=== PATIENT | male | born 1990 | race Caucasian/White ===

== ENCOUNTER 2023-03-30 12:18 | Emergency (ER) | payer OTHER ==
--- NOTE | 2023-03-30 12:53 | ED ---
Abdominal Pain HPI - General Source: patient, RN notes reviewed Mode of arrival: ambulatory Limitations: no limitations <Reymundo Briggs - Last Filed: 03/30/23 12:47> <René Howe - Last Filed: 03/30/23 21:15> - General Chief Complaint: Abdominal Pain Stated Complaint: swollen/painful right rib area Time Seen by Provider: 03/30/23 12:52 - History of Present Illness Initial Comments: 32-year-old male presents emergency department to complaint right-sided rib pain and abdominal pain. Patient states his bowel movements last few days. Patient states that does hurt to move denies any trauma no rashes. Patient states sometimes eating makes it worse. He has had decreased appetite. Patient denies any other associated symptoms. (Reymundo Briggs) 32-year-old male presenting with chief complaint of rib pain. Pain is been ongoing for the last 3 days. Located on the right side and stretches from the lateral portion to the posterior portion. No injury or trauma. Pain is worse with deep breaths. No dysuria, hematuria, fever, chills, nausea, vomiting, abdominal pain, palpitations, numbness, tingling, weakness. (René Howe) - Related Data Previous Rx's Medication Instructions Recorded Cyclobenzaprine [Flexeril] 10 mg PO HS PRN #15 tab 03/30/23 Lidocaine 5% Patch [Lidoderm 5% 1 patch TOPICAL DAILY PRN #30 patch 03/30/23 Patch] Allergies Allergy/AdvReac Type Severity Reaction Status Date / Time No Known Allergies Allergy Verified 03/30/23 16:55 Review of Systems ROS Other: All systems not noted in ROS Statement are negative. <Reymundo Briggs - Last Filed: 03/30/23 12:47> ROS Other: All systems not noted in ROS Statement are negative. <René Howe - Last Filed: 03/30/23 21:15> ROS Statement: Those systems with pertinent positive or pertinent negative responses have been documented in the HPI. Past Medical History Past Medical History: No Reported History Additional Past Medical History / Comment(s): Overdose, aspiration, hepatitis C History of Any Multi-Drug Resistant Organisms: None Reported Past Surgical History: No Surgical Hx Reported Past Anesthesia/Blood Transfusion Reactions: No Reported Reaction Past Psychological History: Anxiety, Depression Smoking Status: Vaper Past Alcohol Use History: Occasional Past Drug Use History: Cocaine, Marijuana <Reymundo Briggs - Last Filed: 03/30/23 12:47> General Exam Limitations: no limitations <Reymundo Briggs - Last Filed: 03/30/23 12:47> Limitations: no limitations General appearance: alert, in no apparent distress Head exam: Present: atraumatic, normocephalic, normal inspection Eye exam: Present: normal appearance, EOMI Neck exam: Present: normal inspection, full ROM Respiratory exam: Present: normal lung sounds bilaterally, chest wall tenderness. Absent: respiratory distress, wheezes, rales, rhonchi, stridor Cardiovascular Exam: Present: regular rate, normal rhythm, normal heart sounds. Absent: systolic murmur, diastolic murmur, rubs, gallop, clicks Back exam: Present: normal inspection Neurological exam: Present: alert, oriented X3 Psychiatric exam: Present: normal affect, normal mood Skin exam: Present: warm, dry, intact, normal color. Absent: rash <René Howe - Last Filed: 03/30/23 21:15> - General Exam Comments Initial Comments: Visual Physical Exam Vital signs reviewed General: Well-appearing, nontoxic, no acute distress. Head: Normocephalic, atraumatic Eyes: PERRLA, EOMI ENT: Airway patent Chest: Nonlabored breathing Skin: No visual rash, normal skin tone Neuro: Alert and oriented 3 Musculoskeletal: No gross abnormalities (Reymundo Briggs) Course Vital Signs 03/30/23 03/30/23 12:34 19:46 Temperature 98.4 F Pulse Rate 62 62 Respiratory 18 18 Rate Blood Pressure 118/69 120/88 O2 Sat by Pulse 99 99 Oximetry Medical Decision Making <Reymundo Briggs - Last Filed: 03/30/23 12:47> - Lab Data Result diagrams: 03/30/23 13:54 03/30/23 13:54 <René Howe - Last Filed: 03/30/23 21:15> - Medical Decision Making I completed the quick note portion of this chart signed Reymundo Briggs PA-C (Reymundo Briggs) Was pt. sent in by a medical professional or institution ([facility], [employer], urgent care, hospital, or [facility]...) When possible be specific @ -No Did you speak to anyone other than the patient for history (EMS, parent, family, police, friend...)? What history was obtained from this source @ -No Did you review nursing and triage notes (agree or disagree)? Why? @ -I reviewed and agree with nursing and triage notes Were old charts reviewed (outside hosp., previous admission, EMS record, old EKG, old radiological studies, urgent care reports/EKG's, [facility] records)? Report findings @ -No old charts were reviewed Differential Diagnosis (chest pain, altered mental status, abdominal pain women, abdominal pain men, vaginal bleeding, weakness, fever, dyspnea, syncope, headache, dizziness, GI bleed, back pain, seizure, CVA, palpatations, mental he alth, musculoskeletal)? @ - MDM Differential Back Pain: Strain, zoster, cauda equina syndrome, epidural abscess, vertebral osteomyelitis, discitis, fracture, subluxation, disc herniation, DJD, spinal stenosis, dissection, AAA, pancreatitis, peptic ulcer disease, pyelonephritis, kidney stone this is not meant to be an all-inclusive list. EKG interpreted by me (3pts min.). @ -As above X-rays interpreted by me (1pt min.). @ -chest x-ray shows no acute process CT interpreted by me (1pt min.). @ -None done U/S interpreted by me (1pt. min.). @ -None done What testing was considered but not performed or refused? (CT, X-rays, U/S, labs)? Why? @ -None What meds were considered but not given or refused? Why? @ -None Did you discuss the management of the patient with other professionals (professionals i.e. , PA, [employer], lab, RT, psych nurse, healthcare social worker, four slide machine setter, teacher, jail officer, disease case manager)? Give summary @ -No Was smoking cessation discussed for >3mins.? @ -No Was critical care preformed (if so, how long)? @ -No Were there social determinants of health that impacted care today? How? (Homelessness, low income, unemployed, alcoholism, drug addiction, transportation, low edu. Level, literacy, decrease access to med. care, [facility], rehab)? @ -No Was there de-escalation of care discussed even if they declined (Discuss DNR or withdrawal of care, Hospice)? DNR status @ -No What co-morbidities impacted this encounter? (DM, HTN, Smoking, COPD, CAD, Cancer, CVA, ARF, Chemo, Hep., AIDS, mental health diagnosis, sleep apnea, morb id obesity)? @ -None Was patient admitted / discharged? Hospital course, mention meds given and route, prescriptions, significant lab abnormalities, going to OR and other pertinent info. @ -32-year-old male presenting with chief complaint of right-sided rib pain. History and physical are conducted. Heart and lungs are clear to auscultation, pain is reproducible upon palpation. Lab work requires no action. Negative chest x-ray. Patient is treated with lidocaine patches and Toradol, on reassessment he reports some improvement in the pain. Likely musculoskeletal in origin. He is sent with prescription for cyclobenzaprine and lidocaine patches to his pharmacy.Follow-up with PCP. Report back to ER with any new or worsening symptoms. Discussed return parameters and answered all questions. Patient conveyed verbal understanding and agreed to the plan. I discussed this case in detail with my attending Dr. Lawrence Undiagnosed new problem with uncertain prognosis? @ -No Drug Therapy requiring intensive monitoring for toxicity (Heparin, Nitro, Insulin, Cardizem)? @ -No Were any procedures done? @ -No Diagnosis/symptom? @ -Rib pain Acute, or Chronic, or Acute on Chronic? @ -Acute Uncomplicated (without systemic symptoms) or Complicated (systemic symptoms)? @ -uncomplicated Side effects of treatment? @ -No Exacerbation, Progression, or Severe Exacerbation? @ -No Poses a threat to life or bodily function? How? (Chest pain, [place], [place], pneumonia, PE, COPD, DKA, ARF, appy, cholecystitis, CVA, Diverticulitis, Homicidal, Suicidal, threat to staff... and all critical care pts) @ -No (René Howe) - Lab Data Lab Results 03/30/23 03/30/23 03/30/23 Range/Units 13:54 13:54 18:12 WBC 6.3 (3.8-10.6) k/uL RBC 5.43 (4.30-5.90) m/uL Hgb 15.7 (13.0-17.5) gm/dL Hct 46.7 (39.0-53.0) % MCV 86.0 (80.0-100.0) fL MCH 28.9 (25.0-35.0) pg MCHC 33.6 (31.0-37.0) g/dL RDW 12.8 (11.5-15.5) % Plt Count 204 (150-450) k/uL MPV 10.5 Neutrophils % 70 % Lymphocytes % 22 % Monocytes % 6 % Eosinophils % 1 % Basophils % 0 % Neutrophils # 4.4 (1.3-7.7) k/uL Lymphocytes # 1.4 (1.0-4.8) k/uL Monocytes # 0.4 (0-1.0) k/uL Eosinophils # 0.1 (0-0.7) k/uL Basophils # 0.0 (0-0.2) k/uL Sodium 138 (137-145) mmol/L Potassium 4.5 (3.5-5.1) mmol/L Chloride 103 (98-107) mmol/L Carbon Dioxide 24 (22-30) mmol/L Anion Gap 11 mmol/L BUN 16 (9-20) mg/dL Creatinine 0.73 (0.66-1.25) mg/dL Est GFR (CKD-EPI)AfAm >90 (>60 ml/min/1.73 sqM) Est GFR (CKD-EPI)NonAf >90 (>60 ml/min/1.73 sqM) Glucose 88 (74-99) mg/dL Calcium 10.0 (8.4-10.2) mg/dL Total Bilirubin 0.9 (0.2-1.3) mg/dL AST 55 (17-59) U/L ALT 81 H (4-49) U/L Alkaline Phosphatase 73 (38-126) U/L Total Protein 8.4 H (6.3-8.2) g/dL Albumin 4.8 (3.5-5.0) g/dL Lipase 54 (23-300) U/L Urine Color [place] Urine Appearance Cloudy (Clear) Urine pH 6.5 (5.0-8.0) Ur Specific [place] 1.034 (1.001-1.035) Urine Protein 1+ H (Negative) Urine Glucose (UA) Negative (Negative) Urine Ketones Negative (Negative) Urine Blood Negative (Negative) Urine Nitrite Negative (Negative) Urine Bilirubin Negative (Negative) Urine Urobilinogen 2.0 (<2.0) mg/dL Ur Leukocyte Esterase Negative (Negative) Urine RBC 1 (0-5) /hpf Urine WBC 3 (0-5) /hpf Urine Mucus Many H (None) /hpf Disposition <Reymundo Briggs - Last Filed: 03/30/23 12:47> Is patient prescribed a controlled substance at d/c from ED?: No Time of Disposition: 19:13 <René Howe - Last Filed: 03/30/23 21:15> Clinical Impression: Rib pain, Back pain Disposition: HOME SELF-CARE Condition: Good Instructions (If sedation given, give patient instructions): Costochondritis (ED), Back Pain (ED) Additional Instructions: Follow-up with PCP, if you do not have one suggestions are provided. Report back to ER with any new or worsening symptoms. Take Motrin and Tylenol as needed for pain control. Prescriptions: Cyclobenzaprine [Flexeril] 10 mg PO HS PRN #15 tab PRN Reason: Spasms Lidocaine 5% Patch [Lidoderm 5% Patch] 1 patch TOPICAL DAILY PRN #30 patch PRN Reason: Pain Referrals: None,Stated [Primary Care Provider] - 1-2 days Kashif Deshpande MD [STAFF PHYSICIAN] - 1-2 days Robert Yancey MD [STAFF PHYSICIAN] - 1-2 days
[2023-03-30 13:06] VITALS: PULSE 62; RESP 18; TEMP 98.4
[2023-03-30 14:27] LABS: ALT 81 U/L (4-49); African American GFR (CKD) >90 (>60 ml/min/1.73 sqM); Anion Gap 11 mmol/L; Basophils % (A) 0 %; Blood Urea Nitrogen 16 mg/dL (9-20); Carbon Dioxide 24 mmol/L (22-30); Chloride 103 mmol/L (98-107); Eosinophils # (A) 0.1 k/uL (0-0.7); Eosinophils % (A) 1 %; Glucose 88 mg/dL (74-99); HCT 46.7 % (39.0-53.0); HGB 15.7 gm/dL (13.0-17.5); Lipase 54 U/L (23-300); Lymphocytes # (A) 1.4 k/uL (1.0-4.8); Lymphocytes % (A) 22 %; MCH 28.9 pg (25.0-35.0); MCHC 33.6 g/dL (31.0-37.0); Mean Platelet Volume 10.5; Monocytes # (A) 0.4 k/uL (0-1.0); Monocytes % (A) 6 %; Neutrophils # (A) 4.4 k/uL (1.3-7.7); Neutrophils % (A) 70 %; Non-African American GFR(CKD) >90 (>60 ml/min/1.73 sqM); Platelet Count 204 k/uL (150-450); RBC 5.43 m/uL (4.30-5.90); RDW 12.8 % (11.5-15.5); Sodium 138 mmol/L (137-145); Total Bilirubin 0.9 mg/dL (0.2-1.3); WBC 6.3 k/uL (3.8-10.6)
[2023-03-30 14:32] LABS: Potassium 4.5 mmol/L (3.5-5.1)
[2023-03-30 14:33] LABS: AST 55 U/L (17-59); Albumin 4.8 g/dL (3.5-5.0); Alkaline Phosphatase 73 U/L (38-126); Total Protein 8.4 g/dL (6.3-8.2)
--- NOTE | 2023-03-30 14:40 | XR ---
EXAMINATION TYPE: XR chest 2V DATE OF EXAM: 03/30/2023 COMPARISON: 07/03/1999 TECHNIQUE: PA and lateral views submitted. HISTORY: Pain FINDINGS: The lungs are clear and there is no pneumothorax, pleural effusion, or focal pneumonia. Heart size normal and no overt failure. Osseous structures demonstrate hypertrophic and degenerative changes of the spine. Scoliosis noted. Hyperexpansion compatible COPD. IMPRESSION: 1. No acute process.
[2023-03-30] MEDS ORDERED: KETOROLAC 15 MG/ML 1 ML VIAL IVP STA (16:16)
[2023-03-30] MEDS ORDERED: LIDOCAINE 5% PATCH TOPICAL SCH (16:30)
[2023-03-30 19:01] LABS: Appearance,Urine Cloudy (Clear); Bilirubin,Urine Negative (Negative); Blood,Urine Negative (Negative); Color,Urine Light Orange; Glucose,Urine (UA) Negative (Negative); Ketones,Urine Negative (Negative); Leukocyte Esterase,Urine Negative (Negative); Nitrite,Urine Negative (Negative); PH, Urine 6.5 (5.0-8.0); Protein,Urine 1+ (Negative)
[2023-03-30 19:03] LABS: Mucus,Urine Many /hpf; RBC,Urine 1 /hpf (0-5); WBC,Urine 3 /hpf (0-5)
[2023-03-30 19:06] LABS: Specific Gravity,Urine 1.034 (1.001-1.035)
[2023-03-30 20:12] VITALS: BP 120/88
== END 2023-03-30 19:47 | disposition home or self-care (01) ==
LOC: EC 12:18
DX: R07.81 Pleurodynia (principal); M54.9 Dorsalgia, unspecified; F17.290 Nicotine dependence, other tobacco product, uncomplicated; F12.90 Cannabis use, unspecified, uncomplicated; F14.90 Cocaine use, unspecified, uncomplicated; Z86.59 Personal history of other mental and behavioral disorders
CPT/HCPCS: 99284; 36415; 80053; 83690; 85025; 81001; 71046; 96374; J1885